=== PATIENT | female | born 1970 | race Caucasian/White ===

== ENCOUNTER 2017-09-11 12:36 | Emergency (ER) | payer BC, SELFPAY ==
[2017-09-11] MEDS: NORCO, ANEXSIA 5/325MG TABLET (HYDROcodone/ACETAMINOPHEN) PO (13:25)
[2017-09-11] MEDS: ADACEL/BOOSTRIX VACCINE (DIPHTH/PERTUSS/ACELL/TETANUS)0.5ML SYR (90715) IM (13:26)
[2017-09-11] MEDS: MORPHINE 4 MG/ML 1ML SYRINGE IV (15:22)
[2017-09-11] MEDS: ONDANSETRON 4MG/2ML VIAL (J2405) IV (15:22)
[2017-09-11] MEDS: NS 1,000 ML IV (16:00)
== END 2017-09-11 18:53 | disposition home or self-care (01) ==
LOC: M ED 12:36
DX: S06.0X0A Concussion without loss of consciousness, initial encounter (principal); S82.832A Other fracture of upper and lower end of left fibula, initial encounter for closed fracture; S82.102A Unspecified fracture of upper end of left tibia, initial encounter for closed fracture; S52.531A Colles' fracture of right radius, initial encounter for closed fracture; S80.212A Abrasion, left knee, initial encounter; V86.52XA Driver of snowmobile injured in nontraffic accident, initial encounter; Y92.9 Unspecified place or not applicable; Y93.9 Activity, unspecified; M50.321 Other cervical disc degeneration at C4-C5 level; M50.322 Other cervical disc degeneration at C5-C6 level; M50.323 Other cervical disc degeneration at C6-C7 level; E03.9 Hypothyroidism, unspecified; Z87.891 Personal history of nicotine dependence; Z88.2 Allergy status to sulfonamides
CPT/HCPCS: 90715